=== PATIENT | female | born 1965 | race Caucasian/White ===

== ENCOUNTER 2018-06-13 18:51 | Inpatient (IN) | payer BC, OTHER ==
[2018-06-13] MEDS ORDERED: fentaNYL (PF) 50 MCG/ML 2 ML AMP IV STA ×2 (18:57→19:38)
[2018-06-13 19:02] LABS: Glucose,Whole Blood 79 mg/dL (75-99)
[2018-06-13 19:07] LABS: Basophils % (A) 0 %; Eosinophils # (A) 0.3 k/uL (0-0.7); Eosinophils % (A) 2 %; HCT 42.7 % (34.0-46.0); HGB 14.2 gm/dL (11.4-16.0); Lymphocytes # (A) 3.3 k/uL (1.0-4.8); Lymphocytes % (A) 24 %; MCH 30.9 pg (25.0-35.0); MCHC 33.3 g/dL (31.0-37.0); MCV 92.9 fL (80.0-100.0); Monocytes # (A) 0.6 k/uL (0-1.0); Monocytes % (A) 4 %; Neutrophils # (A) 9.7 k/uL (1.3-7.7); Neutrophils % (A) 69 %; Platelet Count 264 k/uL (150-450); RDW 12.7 % (11.5-15.5); WBC 14.1 k/uL (3.8-10.6)
[2018-06-13 19:16] LABS: ALT 36 U/L (9-52); AST 40 U/L (14-36); Albumin 3.3 g/dL (3.5-5.0); Alcohol <10 mg/dL; Alkaline Phosphatase 60 U/L (38-126); Amylase 54 U/L (30-110); Anion Gap 6 mmol/L; Blood Urea Nitrogen 7 mg/dL (7-17); Calcium 8.2 mg/dL (8.4-10.2); Carbon Dioxide 20 mmol/L (22-30); Chloride 111 mmol/L (98-107); Glucose 87 mg/dL (74-99); Lipase 148 U/L (23-300); Potassium 3.6 mmol/L (3.5-5.1); Sodium 137 mmol/L (137-145); Total Bilirubin 0.4 mg/dL (0.2-1.3); Total Protein 5.3 g/dL (6.3-8.2)
[2018-06-13 19:18] LABS: Creatine Kinase 69 U/L (30-135)
[2018-06-13 19:22] LABS: INR 1.1 (<1.2); Partial Thromboplastin Time 23.1 sec (22.0-30.0); Prothrombin Time 10.5 sec (9.0-12.0)
[2018-06-13 19:31] LABS: Creatine Kinase MB 0.4 ng/mL (0.0-2.4); Troponin I <0.012 ng/mL (0.000-0.034)
[2018-06-13] MEDS ORDERED: LORazepam 2 MG/ML INJ IV STA (19:38)
[2018-06-13] MEDS ORDERED: SODIUM CHLORIDE 0.9% 500 ML IV STA ×2 (19:38→21:17)
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
[2018-06-13 20:34] LABS: Appearance,Urine Clear (Clear); Bilirubin,Urine Negative (Negative); Blood,Urine Moderate (Negative); Color,Urine Yellow; Glucose,Urine (UA) Negative (Negative); Hyaline Casts,Urine 1 /lpf (0-2); Ketones,Urine Negative (Negative); Leukocyte Esterase,Urine Negative (Negative); Mucus,Urine Rare /hpf; Nitrite,Urine Negative (Negative); Protein,Urine Trace (Negative); RBC,Urine 30 /hpf (0-5); Squamous Epithelial Cell,Urine 1 /hpf (0-4); Urobilinogen,Urine <2.0 mg/dL (<2.0); WBC,Urine 1 /hpf (0-5)
[2018-06-13 20:42] LABS: Amphetamine Screen,Urine Not Detected (NotDetected); Barbiturate Screen,Urine Not Detected (NotDetected); Benzodiazepines Screen,Urine Not Detected (NotDetected); Cocaine Screen,Urine Not Detected (NotDetected); Methadone Screen, Urine Not Detected (NotDetected); Opiate Screen,Urine Detected (NotDetected); Oxycodone Screen, Urine Not Detected (NotDetected); Phencyclidine Screen,Urine Not Detected (NotDetected); Tricyclic Antidepressant,Urine Not Detected (NotDetected); Urn Cannabinoid Scrn Not Detected (NotDetected)
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
[2018-06-13] MEDS ORDERED: NALOXONE 0.4 MG/ML 1 ML VIAL IV PRN (21:31)
[2018-06-13] MEDS ORDERED: ACETAMINOPHEN TAB 325 MG TAB PO PRN (21:31)
[2018-06-13] MEDS ORDERED: NICOTINE 21MG/24HR PATCH TRANSDERM STA (21:34)
[2018-06-13] MEDS ORDERED: LEVOFLOXACIN 500MG-D5W PMX 500 MG in DEXTROSE/WATER 1 100ML.BAG IVPB STA (21:54)
[2018-06-13] MEDS: SODIUM CHLORIDE 0.9% 1,000 ML IV SCH (22:01)
[2018-06-13] MEDS ORDERED: ACETAMINOPHEN IV (For NPO) 1,000 MG in EMPTY BAG 1 BAG IVPB ONE (22:45)
[2018-06-13 23:35] VITALS: BMI 21.1
[2018-06-14] MEDS: HYDROmorphone 0.5 MG/0.5 ML SYRINGE IVP PRN ×2 (02:09→05:18)
[2018-06-14 06:19] LABS: Basophils % (A) 1 %; Eosinophils # (A) 0.2 k/uL (0-0.7); Eosinophils % (A) 4 %; HCT 37.9 % (34.0-46.0); HGB 12.4 gm/dL (11.4-16.0); Lymphocytes # (A) 1.9 k/uL (1.0-4.8); Lymphocytes % (A) 31 %; MCHC 32.8 g/dL (31.0-37.0); MCV 94.6 fL (80.0-100.0); Mean Platelet Volume 7.2; Monocytes # (A) 0.4 k/uL (0-1.0); Monocytes % (A) 6 %; Neutrophils # (A) 3.5 k/uL (1.3-7.7); Neutrophils % (A) 58 %; Platelet Count 167 k/uL (150-450); RDW 12.6 % (11.5-15.5); WBC 6.1 k/uL (3.8-10.6)
[2018-06-14 06:28] LABS: Anion Gap 0 mmol/L; Blood Urea Nitrogen 7 mg/dL (7-17); Calcium 7.8 mg/dL (8.4-10.2); Carbon Dioxide 24 mmol/L (22-30); Chloride 111 mmol/L (98-107); Glucose 84 mg/dL (74-99); Potassium 3.9 mmol/L (3.5-5.1); Sodium 135 mmol/L (137-145)
[2018-06-14] MEDS: HYDROmorphone 1 MG/ML 1 ML SYRINGE IVP PRN ×4 (08:22→23:51)
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
[2018-06-14] MEDS: HEPARIN SODIUM,PORCINE 5,000 UNIT/ML 1 ML VIAL SQ SCH ×3 (14:29→23:43)
[2018-06-14] MEDS: PANTOPRAZOLE 40 MG TABLET PO SCH (14:29)
[2018-06-14] MEDS: NICOTINE 14MG/24HR PATCH TRANSDERM SCH (14:30)
[2018-06-14] MEDS: KETOROLAC 30 MG/ML 1 ML VIAL IVP SCH ×3 (14:33→23:43)
[2018-06-14] MEDS: IPRATROPIUM-ALBUTEROL 3 ML NEB INHALATION SCH ×2 (15:17→19:43)
[2018-06-14] MEDS: SODIUM CHLORIDE 0.9% 1,000 ML IV SCH ×2 (20:20→23:46)
[2018-06-14] MEDS: HYDROcodone/APAP 5-325MG 1 EACH TAB PO PRN (20:44)
[2018-06-15] MEDS: HYDROcodone/APAP 5-325MG 1 EACH TAB PO PRN ×4 (01:53→18:50)
[2018-06-15] MEDS: HYDROmorphone 1 MG/ML 1 ML SYRINGE IVP PRN ×4 (03:12→20:21)
[2018-06-15] MEDS: PANTOPRAZOLE 40 MG TABLET PO SCH (05:51)
[2018-06-15] MEDS: KETOROLAC 30 MG/ML 1 ML VIAL IVP SCH ×4 (05:51→23:15)
[2018-06-15] MEDS: HEPARIN SODIUM,PORCINE 5,000 UNIT/ML 1 ML VIAL SQ SCH ×3 (07:50→23:15)
[2018-06-15] MEDS: NICOTINE 14MG/24HR PATCH TRANSDERM SCH (07:50)
[2018-06-15] MEDS: IPRATROPIUM-ALBUTEROL 3 ML NEB INHALATION SCH ×3 (08:05→21:14)
[2018-06-15] MEDS ORDERED: MAGNESIUM HYDROXIDE 2,400 MG/10 ML CUP PO PRN (10:28)
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
[2018-06-15] MEDS: CALCIUM CARBONATE 500 MG CHEWABLE PO SCH (16:48)
[2018-06-15] MEDS: CHOLECALCIFEROL 1,000 UNIT TAB PO SCH (16:48)
[2018-06-15] MEDS: SODIUM CHLORIDE 0.9% 1,000 ML IV SCH ×3 (19:00→23:18)
[2018-06-15] MEDS: FLUTICASONE 50MCG/SPRAY NASAL 16GM EA NOSTRIL SCH (20:21)
[2018-06-16] MEDS: HYDROcodone/APAP 5-325MG 1 EACH TAB PO PRN ×4 (00:10→19:41)
[2018-06-16] MEDS: HYDROmorphone 1 MG/ML 1 ML SYRINGE IVP PRN ×5 (03:45→20:43)
[2018-06-16] MEDS: KETOROLAC 30 MG/ML 1 ML VIAL IVP SCH ×4 (05:31→23:39)
[2018-06-16] MEDS: IPRATROPIUM-ALBUTEROL 3 ML NEB INHALATION SCH ×3 (08:03→20:30)
[2018-06-16] MEDS: PANTOPRAZOLE 40 MG TABLET PO SCH (08:06)
[2018-06-16] MEDS: NICOTINE 14MG/24HR PATCH TRANSDERM SCH (08:06)
[2018-06-16] MEDS: DOCUSATE 100 MG CAP PO SCH (08:07)
[2018-06-16] MEDS: HEPARIN SODIUM,PORCINE 5,000 UNIT/ML 1 ML VIAL SQ SCH ×3 (08:07→23:38)
[2018-06-16] MEDS: FLUTICASONE 50MCG/SPRAY NASAL 16GM EA NOSTRIL SCH ×2 (08:07→19:42)
[2018-06-16] MEDS: SODIUM CHLORIDE 0.9% 1,000 ML IV SCH ×2 (08:10→21:44)
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
[2018-06-16] MEDS: CALCIUM CARBONATE 500 MG CHEWABLE PO SCH (18:20)
[2018-06-16] MEDS: CHOLECALCIFEROL 1,000 UNIT TAB PO SCH (18:20)
[2018-06-17] MEDS: HYDROmorphone 1 MG/ML 1 ML SYRINGE IVP PRN ×7 (00:23→20:41)
[2018-06-17] MEDS: HYDROcodone/APAP 5-325MG 1 EACH TAB PO PRN ×4 (02:09→18:31)
[2018-06-17] MEDS: KETOROLAC 30 MG/ML 1 ML VIAL IVP SCH ×4 (05:30→23:43)
[2018-06-17] MEDS: SODIUM CHLORIDE 0.9% 1,000 ML IV SCH ×2 (05:45→17:45)
[2018-06-17] MEDS: DOCUSATE 100 MG CAP PO SCH (08:07)
[2018-06-17] MEDS: NICOTINE 14MG/24HR PATCH TRANSDERM SCH (08:07)
[2018-06-17] MEDS: PANTOPRAZOLE 40 MG TABLET PO SCH (08:08)
[2018-06-17] MEDS: HEPARIN SODIUM,PORCINE 5,000 UNIT/ML 1 ML VIAL SQ SCH ×3 (08:08→23:44)
[2018-06-17] MEDS: IPRATROPIUM-ALBUTEROL 3 ML NEB INHALATION SCH ×3 (08:18→19:36)
[2018-06-17] MEDS: FLUTICASONE 50MCG/SPRAY NASAL 16GM EA NOSTRIL SCH ×2 (10:01→20:41)
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
[2018-06-17] MEDS: CHOLECALCIFEROL 1,000 UNIT TAB PO SCH (17:40)
[2018-06-17] MEDS: CALCIUM CARBONATE 500 MG CHEWABLE PO SCH (17:40)
[2018-06-18] MEDS: HYDROcodone/APAP 5-325MG 1 EACH TAB PO PRN ×2 (01:43→10:06)
[2018-06-18] MEDS: SODIUM CHLORIDE 0.9% 1,000 ML IV SCH ×2 (02:57→11:58)
[2018-06-18] MEDS: HYDROmorphone 1 MG/ML 1 ML SYRINGE IVP PRN ×3 (03:22→12:02)
[2018-06-18] MEDS: KETOROLAC 30 MG/ML 1 ML VIAL IVP SCH (05:24)
[2018-06-18] MEDS: IPRATROPIUM-ALBUTEROL 3 ML NEB INHALATION SCH (07:21)
[2018-06-18 07:56] VITALS: BP 130/78; PULSE 108; RESP 14; TEMP 98.6
[2018-06-18] MEDS: PANTOPRAZOLE 40 MG TABLET PO SCH (09:02)
[2018-06-18] MEDS: DOCUSATE 100 MG CAP PO SCH (09:02)
[2018-06-18] MEDS: HEPARIN SODIUM,PORCINE 5,000 UNIT/ML 1 ML VIAL SQ SCH (09:02)
[2018-06-18] MEDS: FLUTICASONE 50MCG/SPRAY NASAL 16GM EA NOSTRIL SCH (09:03)
[2018-06-18] MEDS: NICOTINE 14MG/24HR PATCH TRANSDERM SCH (09:04)
== END 2018-06-18 12:25 | DRG 535 ==
LOC: EC 18:51 → 6SEL 21:31 → 3SUR 06-15 18:28
PROVIDERS: ADMIT Surgery; ATTEND Surgery
DX: S32.592A Other specified fracture of left pubis, initial encounter for closed fracture (principal); S32.401A Unspecified fracture of right acetabulum, initial encounter for closed fracture; S32.19XA Other fracture of sacrum, initial encounter for closed fracture; S32.591A Other specified fracture of right pubis, initial encounter for closed fracture; R05 Cough; F17.210 Nicotine dependence, cigarettes, uncomplicated; E86.0 Dehydration; K57.30 Diverticulosis of large intestine without perforation or abscess without bleeding; R40.2412 Glasgow coma scale score 13-15, at arrival to emergency department; V43.62XA Car passenger injured in collision with other type car in traffic accident, initial encounter; Y92.9 Unspecified place or not applicable; Z88.1 Allergy status to other antibiotic agents; Y92.410 Unspecified street and highway as the place of occurrence of the external cause; Z83.3 Family history of diabetes mellitus; Z90.710 Acquired absence of both cervix and uterus
CPT/HCPCS: 36415; 70450; 71045; 71260; 72125; 72170; 74177; 80048; 80053; 80306; 80320; 81001; 82150; 82550; 82553; 83605; 83690; 84484; 85025; 85610; 85730; 86850; 86900; 86901; 87040; 93005; 94640; 96365; 96375; 96376; 99291